=== PATIENT | male | born 1970 | race Two or more races ===

== ENCOUNTER → 2024-04-11 | Outpatient (CLI) | payer BC, SELFPAY ==
[2024-04-11 08:40] LABS: Cardiac Risk Estimate 4.2 RATIO (4.0-6.7); Cholesterol 250 mg/dL (132-200); HDL Cholesterol 59 mg/dL (40-60); LDL Cholesterol,Calculated 172 mg/dL (0-130); Triglycerides 97 mg/dL (30-150)
== END | disposition home or self-care (01) ==
LOC: COPL 07:39
PROVIDERS: PCP Family Medicine; Referring Provider Family Medicine; Visit Provider Family Medicine
DX: E78.2 Mixed hyperlipidemia (principal)
CPT/HCPCS: 36415; 80061